=== PATIENT | male | born 1975 | race Caucasian/White ===

== ENCOUNTER 2022-11-24 09:00 | Outpatient (RCR) | payer OTHER | END 2022-11-25 | disposition home or self-care (01) | LOC: WSOT | DX: M67.841 Other specified disorders of synovium, right hand (principal) ==

== ENCOUNTER 2022-12-18 09:15 | Outpatient (RCR) | payer OTHER | END 2022-12-26 | disposition home or self-care (01) | LOC: WSOT | DX: M67.841 Other specified disorders of synovium, right hand (principal) ==

== ENCOUNTER → 2023-06-10 | Outpatient (CLI) | payer OTHER | LOC: COL.RAD 06-05 08:15 | DX: Z01.89 Encounter for other specified special examinations (principal); M50.322 Other cervical disc degeneration at C5-C6 level; M50.323 Other cervical disc degeneration at C6-C7 level; M48.02 Spinal stenosis, cervical region; M24.111 Other articular cartilage disorders, right shoulder | CPT/HCPCS: A9575; Q9967 ==